=== PATIENT | female | born 1960 | race Caucasian/White ===

== ENCOUNTER 2017-02-11 20:46 | Emergency (ER) | payer MEDICARE, MEDICAID ==
--- NOTE | 2017-02-11 21:08 | ED Physician Documentation ---
Upper Respiratory Symptoms - HPI Chief Complaint: Cough/ Upper Respiratory Additional Information: 56 yo F with h/o COPD who continue to smoke now present with productive cough that is been going on for the last 1 1/2 weeks and progressively getting worse. She also reports fever last night and tried ibuprofen with resolution. She also reports postnasal drip. Symptoms always starts with allergy sinus then post nasal drip then finally to bronchitis. No sick contact reported. Pt denies any CP or palpitation. Onset: days ago Duration: sudden-Onset Severity: moderate Associated Symptoms: fever Worsened by Deep Breath: Yes Further Comments: no - ROS CONST/EYES: other (none) CVS/RESP: shortness of breath GI/: none - PAST HX Lung Disease: COPD, bronchitis PE Risk Factors: none Surgeries/Procedures: none Allergies/Adverse Reactions: Allergies Allergy/AdvReac Type Severity Reaction Status Date / Time codeine [Codeine] Allergy Verified 02/11/17 21:06 erythromycin base Allergy Verified 02/11/17 21:06 [Erythromycin Base] metronidazole [From Flagyl] Allergy Verified 02/11/17 21:06 Metronidazole HCl Allergy Verified 02/11/17 21:06 [From Flagyl] Penicillins Allergy Verified 02/11/17 21:06 Home Medications: Ambulatory Orders Medication Instructions Recorded NK [NK] 02/11/17 - SOCIAL HX Smoking History: cigarettes, greater than 1 pack/day - FAMILY HX Family History: none - VITAL SIGNS Vital Signs: Vital Signs Temp Pulse Resp BP Pulse Ox 98.4 F 87 18 136/44 95 02/11/17 22:19 02/11/17 22:19 02/11/17 22:19 02/11/17 22:19 02/11/17 22:19 - REVIEWED ASSESSMENTS Nursing Assessment Reviewed: Yes Vitals Reviewed: Yes Progress - Progress Progress: sinus congestion with productive cough -- noted with diffused exploratory wheezing -- will give DueNeb -- CXR --noted with 1.8 cn sized area of R lung mass or confluent with infiltrate- - will treat as infiltrate tonight and have pt followup with her primary doctor for further evaluation of her lungs-- 2206: During my discuss about the findings with the pt she informed me that she has had mass removed in the lungs before that were non cancerous. She says she has an appointment with her primary Dr Monge on 02/19/17 and she will just discuss the new findings with him and further evaluation if needed. ED Results Lab/Radiology - Orders Orders: ED Orders Category Date Time Status CHEST P.A.&LAT 2 VIEWS [RAD] Stat Exams 02/11/17 Completed Albuterol Sulfate [Ventolin] Med 02/11/17 21:11 Discontinued 2.5 mg NEB NOW ONE Levofloxacin [Levaquin] Med 02/11/17 22:11 Discontinued 500 mg PO NOW ONE methylPREDNISolone SOD SUCC [Solu-MEDROL] Med 02/11/17 21:13 Discontinued 125 mg IM NOW ONE Upper Respiratory Symptoms - EXAM General Appearance: no acute distress, alert EENT: eyes nml inspection Neck: normal inspection Respiratory: wheezes (scanty diffused exploratory wheezing) Abdomen: non-tender CVS: reg rate & rhythm Skin: color nml, no rash Extremities: non-tender Neuro/Psych: oriented x3 Discharge Clincal Impression: Mass of right lung Pneumonia Qualifiers: Pneumonia type: due to unspecified organism Laterality: right Lung location: lower lobe of lung Qualified Code(s): J18.1 - Lobar pneumonia, unspecified organism Referrals: Brandon Somers MD [Primary Care Provider] - 2 Days Home Medications: Ambulatory Orders NK [NK] 02/11/17 Condition: Good Disposition: 01 HOME, SELF-CARE Decision to Admit: NO Decision Time: 22:13
[2017-02-11] MEDS ORDERED: ALBUTEROL SULFATE 2.5 MG/3 ML AMPUL.NEB NEB ONE (21:11)
[2017-02-11] MEDS ORDERED: methylPREDNISolone SOD SUCC 125 MG/2 ML VIAL IM ONE (21:13)
--- NOTE | 2017-02-11 22:04 | Diagnostic Imaging Report ---
GALO GILBERT [facility] [address] Pending Sale To [facility] [address] [place], [place]. [address] Report Submission Date: February 11, 2017 9:39:53 PM CDT Patient Study Name: STEVEN DIAS Date: February 11, 2017 9:24:14 PM CDT Modality Type: CR Gender: F Description: CHEST : 60 Institution: [facility] Physician: GALO GILBERT Chest 2 views Date of Exam: February 11, 2017. History: CXR- PRODUCTIVE COUGH, CONGESTION, FEVER X1 1/2 WEEKS. (Hx) / COUGH ( DICOM Hx) / COUGH (Pt comments) Findings: Comparison with December 26, 2012 again demonstrates hyperinflation and chronic emphysematous lung parenchymal changes. Right lower lobe lung granulomata are again noted. A 1.8 cm sized area of right lower lobe lung parenchymal opacification is present that may represent a lung mass or confluent infiltrate. There is scarring or atelectasis adjacent to the left hilum. The trachea is midline and the aortic arch contour is normal. The pulmonary vascularity is unchanged. Impression: 1.8 cm sized area of right lower lobe lung mass or confluent lung infiltrate. Electronically signed on February 11, 2017 9:39:53 PM CDT by: Rosalind BUCK
[2017-02-11] MEDS ORDERED: LEVOFLOXACIN 500 MG TABLET PO ONE (22:11)
[2017-02-11 22:20] VITALS: BP 136/44
== END 2017-02-11 22:19 | disposition home or self-care (01) ==
LOC: ED 20:46
DX: R91.8 Other nonspecific abnormal finding of lung field (principal); J18.9 Pneumonia, unspecified organism
CPT/HCPCS: 71020; J2930; 96372; 99283

== ENCOUNTER 2017-03-04 10:18 | Outpatient (CLI) | payer MEDICARE, MEDICAID ==
[2017-03-04 10:58] LABS: eGFR (African) > 60; eGFR (Non-African) > 60
--- NOTE | 2017-03-04 15:16 | Diagnostic Imaging Report ---
FRANTZ ALVARADO [facility] [address] [facility] [address] [address] Report Submission Date: March 04, 2017 1:15:06 PM CDT Patient Study Name: STEVEN DIAS Date: March 04, 2017 11:20:32 AM CDT Modality Type: CT\SR Gender: F Description: CT CHEST W/ CONTRAST : 60 Institution: [facility] Physician: FRANTZ ALVARADO CT chest with contrast Date of study: 04 Mar 2017 Comparison: Chest radiograph from 21 days earlier CLINICAL HISTORY: FOLLOW UP LUNG MASS FROM CXR ON 02/11/17 (Hx) / LUNG MASS, FOLLOW UP CXR FROM 02/11/17 (DICOM Hx) TECHNIQUE: 5 mm contiguous axial images of the chest with contrast. Sagittal and coronal reconstructions. FINDINGS: The upper abdomen shows a cyst in the right lobe of the liver. Lung windows show biapical pleuroparenchymal fibrosis. Emphysema is present in the lungs. Some minimal scarring or atelectasis is present in the lingula. There is some right middle lobe pleural base atelectasis or scarring. Bibasilar atelectasis or scarring is present. Are calcified granulomas. Thoracic spondylosis is present. No aneurysm is seen. Calcified lymph nodes are present and mediastinum. There is a cyst arising from the right kidney. IMPRESSION: Emphysema Bilateral scarring or atelectasis probably the densities seen on the chest radiograph Old healed granulomatous disease right renal and hepatic cysts Electronically signed on March 04, 2017 1:15:06 PM CDT by: Joaquin BUCK
== END 2017-03-04 10:20 ==
LOC: RAD 10:18
PROVIDERS: ATTEND Physician Assistant
DX: R91.8 Other nonspecific abnormal finding of lung field (principal); J43.9 Emphysema, unspecified; M47.894 Other spondylosis, thoracic region; Q61.01 Congenital single renal cyst
CPT/HCPCS: 36415; 71260; 82565; Q9966

== ENCOUNTER 2017-06-09 09:13 | Emergency (ER) | payer MEDICARE, OTHER ==
[2017-06-09 09:56] LABS: BASOPHILS % 0.7 (0.0-1.5); EOSINOPHILS % 1.9 % (0.0-6.8); MEAN CORPUSCULAR HEMOGLOBIN 30.5 pg (28.0-34.0); MONOCYTES % 3.5 % (0.0-11.0); NEUTROPHILS # 4.8 # k/uL (1.4-7.7)
--- NOTE | 2017-06-09 10:13 | ED Physician Documentation ---
Abdominal Pain - HISTORIAN Historian: patient - HPI Stated Complaint: right rib pain base of right side Chief Complaint: Abdominal Pain Onset: days ago (2) Duration: constant, persistent Timing: still present Context: other (no new food or travel ) Severity: moderate Quality: pain, cramping, sharp, stabbing Associated Symptoms: nausea, vomiting. denies: fever, chills, coffee ground emesis, bloody emesis, diarrhea, bloody stools, grossly bloody stools, sweating , loss of appetite Exacerbated by: nothing Relieved by: nothing Further Comments: yes (she has "taken 6 reglan and vomited them all up") - ROS CONST: no problems GI/: other (history of IBS) CVS/RESP: none MS/SKIN/LYMPH: none NEURO/PSYCH: none <Cande Aaron - Last Filed: 06/09/17 10:43> - HPI Exacerbated by: cough - PAST HX Past History: other (partial lobectomy for removal of benign lesion) Surgeries/Procedures: other (partial lobectomy) - REVIEWED ASSESSMENTS Nursing Assessment Reviewed: Yes Vitals Reviewed: Yes <Brandon Somers - Last Filed: 06/09/17 11:28> - PAST HX Home Medications: Ambulatory Orders Medication Instructions Recorded Levofloxacin [Levaquin] 750 mg PO D #7 tablet 06/09/17 Prednisone 10 mg PO D #7 tablet 06/09/17 Allergies/Adverse Reactions: Allergies Allergy/AdvReac Type Severity Reaction Status Date / Time codeine [Codeine] Allergy Verified 06/09/17 09:35 erythromycin base Allergy Verified 06/09/17 09:35 [Erythromycin Base] metronidazole [From Flagyl] Allergy Verified 06/09/17 09:35 Metronidazole HCl Allergy Verified 06/09/17 09:35 [From Flagyl] Penicillins Allergy Verified 06/09/17 09:35 - VITAL SIGNS Vital Signs: Vital Signs Temp Pulse Resp BP Pulse Ox 99 F 65 20 136/44 97 06/09/17 09:13 06/09/17 11:00 06/09/17 11:00 02/11/17 22:19 06/09/17 11:00 ED Results Lab/Radiology <Cande Aaron - Last Filed: 06/09/17 10:43> <Brandon Somers - Last Filed: 06/09/17 11:28> - Lab Results Lab Results: Lab Results 06/09/17 06/09/17 09:50 09:50 WBC 7.90 K/ul K/ul (4.00-12.00) RBC 4.40 M/ul M/ul (3.90-5.20) Hgb 13.4 g/dL g/dL (12.0-16.0) Hct 40.9 % % (34.5-46.5) MCV 93.0 fl fl (80.0-100.0) MCH 30.5 pg pg (28.0-34.0) MCHC 32.8 g/dL g/dL (30.0-36.0) RDW 14.0 % % (11.3-14.3) Plt Count 184 K/mm3 K/mm3 (130-400) Neut % (Auto) 61.6 % % (39.0-79.0) Lymph % (Auto) 30.8 % % (16.0-50.0) [place] % (Auto) 3.5 % % (0.0-11.0) Eos % (Auto) 1.9 % % (0.0-6.8) Baso % (Auto) 0.7 (0.0-1.5) Neut # (Auto) 4.8 # k/uL # k/uL (1.4-7.7) Lymph # (Auto) 2.4 # k/uL # k/uL (0.6-4.0) [place] # (Auto) 0.3 # k/uL # k/uL (0.0-0.9) Eos # (Auto) 0.2 # k/uL # k/uL (0.0-0.6) Baso # (Auto) 0.1 # k/uL # k/uL (0.0-0.5) Reactive Lymphs % 1.4 % % (0.0-5.0) Reactive Lymphs # 0.1 # k/uL # k/uL (0.0-0.8) Sodium 139 mmol/L mmol/L (136-145) Potassium 3.8 mmol/L mmol/L (3.5-5.0) Chloride 105 mmol/L mmol/L (98-110) Carbon Dioxide 29 mmol/L mmol/L (20-32) BUN 11 mg/dL mg/dL (10-26) Creatinine 0.6 mg/dL mg/dL (0.4-1.5) Estimated Creat Clear 88 Est GFR ( Amer) > 60 (60 - ) Est GFR (Non-Af Amer) > 60 (60 - ) Glucose 97 mg/dL mg/dL (70-99) Calcium 9.9 mg/dL mg/dL (8.5-10.5) - Radiology Radiology Impressions: Examination: PA and lateral chest. History: Evaluate lung ochoa. Comparison exam: 11 Feb 2017 Findings: PA lateral chest demonstrate a normal cardiac and mediastinal silhouette. Stable scarring involving the left hilum. New consolidative process/ density at the right costophrenic margin. Remaining lung ochoa are otherwise clear. Osseous structures are appropriate for age. Impression: New consolidation right base costophrenic margin. Correlate clinically. Stable left hilar scarring. (Brandon Somers) - Orders Orders: ED Orders Category Date Time Status CHEST 2 VIEW [CHEST P.A.&LAT 2 VIEWS] [RAD] Stat Exams 06/09/17 09:35 Taken BMP [BMP] Routine Lab 06/09/17 09:50 Completed CBC/PLATELET/DIFF Routine Lab 06/09/17 09:50 Completed Abdominal Pain Physical Exam - Physical Exam General Appearance: no acute distress, anxious RESPIRATORY: no resp distress, chest non-tender, breath sounds normal CVS: reg rate & rhythm, heart sounds normal, equal pulses, no murmur ABDOMEN: soft, normal bowel sounds, no distension, non-tender SKIN: warm/dry, normal color NEURO: oriented X3, CN's nml as tested <Cande Aaron - Last Filed: 06/09/17 10:43> - Physical Exam BACK: normal inspection, no CVA tenderness <Brandon Somers - Last Filed: 06/09/17 11:28> - Physical Exam Vital Signs: Vital Signs Temp Pulse Resp BP Pulse Ox 99 F 65 20 136/44 97 06/09/17 09:13 06/09/17 11:00 06/09/17 11:00 02/11/17 22:19 06/09/17 11:00 Discharge <Cande Aaron - Last Filed: 06/09/17 10:43> <Brandon Somers - Last Filed: 06/09/17 11:28> Clincal Impression: Pneumonia Qualifiers: Pneumonia type: due to unspecified organism Laterality: right Lung location: lower lobe of lung Qualified Code(s): J18.1 - Lobar pneumonia, unspecified organism Prescriptions: Levofloxacin [Levaquin] 750 mg PO D #7 tablet Prednisone 10 mg PO D #7 tablet Referrals: Brandon Somers MD [Primary Care Provider] - 2 Days Home Medications: Ambulatory Orders Levofloxacin [Levaquin] 750 mg PO D #7 tablet 06/09/17 Prednisone 10 mg PO D #7 tablet 06/09/17 Condition: Good Disposition: 01 HOME, SELF-CARE
[2017-06-09 10:15] LABS: eGFR (African) > 60; eGFR (Non-African) > 60
--- NOTE | 2017-06-09 15:35 | Diagnostic Imaging Report ---
LORI DE GUZMAN [facility] [address] [facility].[address] [address] Report Submission Date: Jun 09, 2017 10:04:11 AM CDT Patient Study Name: STEVEN DIAS Date: Jun 09, 2017 9:42:28 AM CDT Modality Type: CR Gender: F Description: CHEST : 60 Institution: [facility] Physician: LORI DE GUZMAN Examination: PA and lateral chest. History: Evaluate lung ochoa. Comparison exam: 11 Feb 2017 Findings: PA lateral chest demonstrate a normal cardiac and mediastinal silhouette. Stable scarring involving the left hilum. New consolidative process/ density at the right costophrenic margin. Remaining lung ochoa are otherwise clear. Osseous structures are appropriate for age. Impression: New consolidation right base costophrenic margin. Correlate clinically. Stable left hilar scarring. Electronically signed on Jun 09, 2017 10:04:11 AM CDT by: Tim BUCK
== END 2017-06-09 10:59 | disposition home or self-care (01) ==
LOC: ED 09:13
DX: J18.1 Lobar pneumonia, unspecified organism (principal)
CPT/HCPCS: 71020; 80048; 85025; 99283; S1016

== ENCOUNTER 2017-10-22 14:20 | Emergency (ER) | payer MEDICARE, OTHER ==
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
[2017-10-22 14:48] VITALS: BP 118/50
[2017-10-22] MEDS ORDERED: 0.9 % SODIUM CHLORIDE 500 ML IV ONE (14:48)
[2017-10-22 15:07] LABS: BASOPHILS % 0.3 (0.0-1.5); EOSINOPHILS % 1.5 % (0.0-6.8); MEAN CORPUSCULAR HEMOGLOBIN 30.9 pg (28.0-34.0); MEAN CORPUSCULAR VOLUME 91.1 fl (80.0-100.0); MONOCYTES % 4.3 % (0.0-11.0); NEUTROPHILS # 3.4 # k/uL (1.4-7.7)
[2017-10-22 15:19] LABS: eGFR (African) > 60; eGFR (Non-African) > 60
[2017-10-22] MEDS ORDERED: NALBUPHINE HCL 10 MG/1 ML IVP ONE (15:54)
[2017-10-22] MEDS ORDERED: DIAZEPAM 5 MG TABLET PO ONE (16:58)
--- NOTE | 2017-10-22 18:35 | Diagnostic Imaging Report ---
JACINDA CORLEY~ [facility] [address] [facility] [address] [address] ~ ~ ~ ~ Report Submission Date: Oct 22, 2017 4:20:40 PM HUB CUTTER Patient ~ Study Name: STEVEN DIAS ~ Date: Oct 22, 2017 3:44:22 PM HUB CUTTER ~ Modality Type: CT\SR Gender: F ~ Description: CT NECK SOFT TISSUE W/ : 60 ~ Institution: [facility] Physician: JACINDA CORLEY ~ ~ ~ Examination: CT neck History: Posterior discomfort. Comparison exams: None provided Technique: CT neck with contrast Findings: Parotid and submandibular glands are without abnormality. No abnormal enhancement. No pathologic adenopathy involving the carotid, jugular and posterior cervical chain regions. Base of the tongue, garth pharynx and prevertebral spaces are without abnormality. Trachea and esophagus are midline. No lower cervical chain irregularities. Lower neck structures including thyroid gland are without abnormality. Apical lung ochoa demonstrate scaring. ~Osseous structures demonstrate mild degenerative changes. Streak artifact from dental hardware. Skull base structures including brain parenchyma are without abnormality. Impression: No evidence for neck mass or acute appearing inflammatory process. ~ Electronically signed on Oct 22, 2017 4:20:40 PM HUB CUTTER by: Tim BUCK
== END 2017-10-22 16:55 | disposition home or self-care (01) ==
LOC: ED 14:20
DX: R51 Headache (principal)
CPT/HCPCS: 70491; 80053; 85025; 96361; 96374; 99283; J2300; J7060; Q9967; S1016

== ENCOUNTER 2018-02-28 15:10 | Emergency (ER) | payer MEDICARE, OTHER ==
[2018-02-28] MEDS ORDERED: IPRATROPIUM/ALBUTEROL SULFATE 3 ML AMPUL.NEB NEB ONE (15:30)
--- NOTE | 2018-02-28 15:32 | ED Physician Documentation ---
Upper Respiratory Symptoms - HISTORIAN Historian: patient - HPI Stated Complaint: cough, SOA Chief Complaint: Dyspnea Onset: other (started one week ago) Duration: constant Context: denies: recent foreign travel Severity: mild Associated Symptoms: fever, chills, chest pain (from coughing), productive cough (green sputum), shortness of breath (with exertion/at rest) Worsened by Deep Breath: Yes - ROS CONST/EYES: weakness CVS/RESP: chest pain (right rib pain), shortness of breath LYMPH: denies: leg swelling, rash GI/: nausea, diarrhea (3 days of diarrhea one week ago). denies: abdominal pain, vomiting NEURO/PSYCH: denies: confusion MS/SKIN: muscle aches (fevers running 101-103). denies: rash - PAST HX Lung Disease: COPD, pneumonia PE Risk Factors: none Other History: other (multiple biopsies of masses- negative) Surgeries/Procedures: appendectomy, other (left ovary and tube) Immunizations: UTD Allergies/Adverse Reactions: Allergies Allergy/AdvReac Type Severity Reaction Status Date / Time codeine [Codeine] Allergy Verified 02/28/18 15:21 erythromycin base Allergy Verified 02/28/18 15:21 [Erythromycin Base] metronidazole [From Flagyl] Allergy Verified 02/28/18 15:21 Metronidazole HCl Allergy Verified 02/28/18 15:21 [From Flagyl] Penicillins Allergy Verified 02/28/18 15:21 Home Medications: Ambulatory Orders Medication Instructions Recorded Doxycycline Monohydrate 100 mg PO BID #20 capsule 02/28/18 [Vibramycin] Ibuprofen [Ibuprofen] 800 mg PO TID PRN 02/28/18 - SOCIAL HX Smoking History: cigarettes, greater than 1 pack/day Alcohol Use: none Drug Use: none - FAMILY HX Family History: no significant history - VITAL SIGNS Vital Signs: Vital Signs Temp Pulse Resp BP Pulse Ox 97.6 F 84 16 115/63 94 02/28/18 17:09 02/28/18 17:09 02/28/18 17:09 02/28/18 17:09 02/28/18 17:09 - REVIEWED ASSESSMENTS Nursing Assessment Reviewed: Yes Vitals Reviewed: Yes ED Results Lab/Radiology - Lab Results Lab Results: Lab Results 02/28/18 02/28/18 02/28/18 15:28 15:28 15:27 WBC 13.20 K/ul H K/ul (4.00-12.00) RBC 4.27 M/ul M/ul (3.90-5.20) Hgb 12.7 g/dL g/dL (12.0-16.0) Hct 38.0 % % (34.5-46.5) MCV 89.1 fl fl (80.0-100.0) MCH 29.9 pg pg (28.0-34.0) MCHC 33.5 g/dL g/dL (30.0-36.0) RDW 14.1 % % (11.3-14.3) Plt Count 226 K/mm3 K/mm3 (130-400) Neut % (Auto) 81.7 % H % (39.0-79.0) Lymph % (Auto) 12.4 % L % (16.0-50.0) [place] % (Auto) 4.2 % % (0.0-11.0) Eos % (Auto) 0.4 % % (0.0-6.8) Baso % (Auto) 0.2 (0.0-1.5) Neut # (Auto) 10.8 # k/uL H # k/uL (1.4-7.7) Lymph # (Auto) 1.6 # k/uL # k/uL (0.6-4.0) [place] # (Auto) 0.6 # k/uL # k/uL (0.0-0.9) Eos # (Auto) 0.0 # k/uL # k/uL (0.0-0.6) Baso # (Auto) 0.0 # k/uL # k/uL (0.0-0.5) Reactive Lymphs % 1.1 % % (0.0-5.0) Reactive Lymphs # 0.2 # k/uL # k/uL (0.0-0.8) Sodium 132 mmol/L L mmol/L (136-145) Potassium 4.0 mmol/L mmol/L (3.5-5.1) Chloride 97 mmol/L L mmol/L (98-107) Carbon Dioxide 24 mmol/L mmol/L (22-30) BUN 17 mg/dL mg/dL (7-17) Creatinine 0.50 mg/dL L mg/dL (0.52-1.04) Estimated Creat Clear 110 Est GFR ( Amer) > 60 (60 - ) Est GFR (Non-Af Amer) > 60 (60 - ) Glucose 154 mg/dL H mg/dL (74-106) Calcium 9.2 mg/dL mg/dL (8.4-10.2) Total Bilirubin 0.3 mg/dL mg/dL (0.2-1.3) AST 16 U/L U/L (15-46) ALT 20 U/L U/L (13-69) Alkaline Phosphatase 88 U/L U/L (38-126) Creatine Kinase 44 U/L U/L (30-135) Troponin I < 0.03 ng/mL L ng/mL (0.03-0.06) Total Protein 8.0 g/dL g/dL (6.3-8.2) Albumin 4.3 g/dL g/dL (3.5-5.0) - Radiology Radiology Impressions: CXR Findings: The lung ochoa are hyperinflated with flattening of the hemidiaphragms. Infiltrates are identified in the anterior right middle lobe and right costophrenic angle and left costophrenic angle. The right heart border is obscured. The aorta is moderately tortuous.. Thoracic spondylosis is present. Impression: Hyperinflation Bilateral infiltrates in the lung bases and right middle lobe. - Orders Orders: ED Orders Category Date Time Status Continuous EKG monitoring Q30M Care 02/28/18 15:28 Active Continuous Pulse Oximetry Q30M Care 02/28/18 15:[address] IV Lock 1T Care 02/28/18 15:28 Active CHEST 2VIEW [RAD] Stat Exams 02/28/18 Completed BLOOD CULTURE Stat Lab 02/28/18 15:27 Received CBC/PLATELET/DIFF Routine Lab 02/28/18 15:28 Completed CMP Routine Lab 02/28/18 15:28 Completed CREATINE KINASE Routine Lab 02/28/18 15:28 Completed TROPONIN I (cTnI) Stat Lab 02/28/18 15:27 Completed Ipratropium/Albuterol Sulfate [Duoneb] Med 02/28/18 15:30 Discontinued 3 ml NEB NOW ONE Oxygen Daily Oxygen 02/28/18 15:30 Ordered Upper Respiratory Symptoms - EXAM General Appearance: no acute distress, alert EENT: eyes nml inspection, lids & conjunct. nml, PERRL Neck: normal inspection. No: stiff neck, carotid bruit Respiratory: speaks full sentences, accessory muscle use, wheezes, rhonchi, other (productive cough- green sputum) Abdomen: non-tender, nml bowel sounds, no distention CVS: reg rate & rhythm, heart sounds normal, equal pulses, no murmur Skin: color nml, no rash, warm,dry. No: rash Extremities: non-tender, no edema Neuro/Psych: oriented x3, neuro intact, mood/affect nml Discharge Clincal Impression: Pneumonia Prescriptions: Doxycycline Monohydrate [Vibramycin] 100 mg PO BID #20 capsule Referrals: Brandon Somers MD [Primary Care Provider] - 2 Days Additional Instructions: Special Instructions: Take antibiotic as directed Use nebulizer treatments at home Stop Smoking Increase Fluids Follow up with PCP on Thursday Comments: Patient not able to afford doxycycline Order for Keflex 500mg QID x 10 days ordered Disposition: HOME, SELF-CARE Decision to Admit: NO Decision Time: 17:51
[2018-02-28 15:55] LABS: BASOPHILS % 0.2 (0.0-1.5); EOSINOPHILS % 0.4 % (0.0-6.8); MEAN CORPUSCULAR HEMOGLOBIN 29.9 pg (28.0-34.0); MEAN CORPUSCULAR VOLUME 89.1 fl (80.0-100.0); MONOCYTES % 4.2 % (0.0-11.0); NEUTROPHILS # 10.8 # k/uL (1.4-7.7); eGFR (African) > 60; eGFR (Non-African) > 60
--- NOTE | 2018-02-28 16:41 | Diagnostic Imaging Report ---
[facility] [address] [address] Report Submission Date: February 28, 2018 4:35:19 PM CDT Patient Study Name: STEVEN DIAS Date: February 28, 2018 3:59:28 PM CDT Modality Type: DX Gender: F Description: CHEST : 60 Institution: [facility] Physician: KEILY VALLES Bucket Pusher to anterior and lateral chest Clinical history: Cough and short of breath Technique: Pa and lateral standing upright radiographs Findings: The lung ochoa are hyperinflated with flattening of the hemidiaphragms. Infiltrates are identified in the anterior right middle lobe and right costophrenic angle and left costophrenic angle. The right heart border is obscured. The aorta is moderately tortuous.. Thoracic spondylosis is present. Impression: Hyperinflation Bilateral infiltrates in the lung bases and right middle lobe. Followup to clearing or CT the chest recommended Electronically signed on February 28, 2018 4:35:19 PM CDT by: Joaquin BUCK
[2018-02-28 17:11] VITALS: BP 115/63
== END 2018-02-28 17:09 | disposition home or self-care (01) ==
LOC: ED 15:10
DX: J18.9 Pneumonia, unspecified organism (principal)
CPT/HCPCS: 71046; 80053; 82550; 84484; 85025; 87040; 94640; 99285; S1016